=== PATIENT | male | born 1995 | race Caucasian/White ===

== ENCOUNTER 2016-04-29 19:56 | Emergency (ER) | payer MEDICAID ==
--- NOTE | 2016-04-29 20:12 | Emergency Department Record ---
History of Present Illness - General Chief complaint: Pain Stated complaint: KNEE PAIN Time Seen by Provider: 04/29/16 20:07 Source: Patient Mode of Arrival: Ambulatory Limitations: No limitations - History of Present Illness Initial comments: 20 yo male presents to ED with a CC of right knee pain that began last night, worse today. Patient denies injury, fevers, chills, or recent illness. Patient denies previous injury. Patient denies health problems at his baseline. MD Complaint: Extremity pain, Extremity swelling, Joint swelling Onset/Timin -: Hour(s) Location: Right History of Same: No Radiation: None Severity scale (1-10): 8 Quality: Other Consistency: Other Improves with: Other Worsens with: Other Associated Symptoms: Denies other symptoms - Related Data Previous Rx's Medication Instructions Recorded Naproxen [Naprosyn] 500 mg PO Q12H #30 tab. 04/29/16 Allergies Allergy/AdvReac Type Severity Reaction Status Date / Time Penicillins Allergy HIVES Verified 09/17/15 18:37 Travel Screening - Travel/Exposure Within Last 30 Days Have you traveled within the last 30 days?: No - Travel/Exposure Within Last Year Have you traveled outside the [place] in the last year?: No - Additonal Travel Details Have you been exposed to anyone with a communicable illness?: No - Travel Symptoms Symptom Screening: None Review of Systems Constitutional: Denies: Chills, Fever, Malaise, Night sweats Eyes: Denies: Eye discharge, Eye pain ENT: Denies: Congestion, Ear pain Respiratory: Denies: Cough, Dyspnea Cardiovascular: Denies: Chest pain, Dyspnea on exertion Endocrine: Denies: Fatigue, Heat or cold intolerance Gastrointestinal: Denies: Abdominal pain, Nausea, Vomiting Genitourinary: Denies: Incontinence, Retention Musculoskeletal: Reports: Arthralgia, Joint swelling. Denies: Back pain, Gout Skin: Reports: Change in color (redness). Denies: Bruising, Change in hair/ nails Neurological: Denies: Confusion, Headache, Seizure Psychiatric: Denies: Anxiety Hematological/Lymphatic: Denies: Anemia, Blood Clots Past Medical History - SOCIAL HISTORY Smoking Status: Current every day smoker Alcohol Use: Rare Drug Use Detail:: Marijuana - RESPIRATORY Hx Respiratory Disorders: Yes Hx Asthma: Yes - CARDIOVASCULAR Hx Cardio Disorders: No - NEURO Hx Neuro Disorders: No - GI Hx GI Disorders: No - Hx Genitourinary Disorders: Yes Hx Kidney Stones: Yes (hx) - ENDOCRINE Hx Endocrine Disorders: No - MUSCULOSKELETAL Hx Musculoskeletal Disorders: No - PSYCH Hx Psych Problems: No - HEMATOLOGY/ONCOLOGY Hx Hematology/Oncology Disorders: No Family Medical History Any Significant Family History?: No Hx Kidney Disease: Father Physical Exam - General General Appearance: Alert, Oriented x3, Cooperative, Moderate distress Limitations: No limitations - Head Head exam: Atraumatic, Normocephalic, Normal inspection Head exam detail: negative: Abrasion, Contusion, Gonsales's sign, General tenderness, Hematoma, Laceration - Eye Eye exam: Normal appearance. negative: Conjunctival injection, Periorbital swelling, Periorbital tenderness, Scleral icterus - ENT Ear exam: negative: Auricular hematoma, Auricular trauma Nasal Exam: negative: Active bleeding, Discharge, Dried blood, Foreign body Mouth exam: negative: Drooling, Laceration, Muffled voice, Tongue elevation - Neck Neck exam: Normal inspection. negative: Meningismus, Tenderness - Respiratory Respiratory exam: Normal lung sounds bilaterally. negative: Respiratory distress, Rhonchi, Stridor, Wheezes - Cardiovascular Cardiovascular Exam: Regular rate, Normal rhythm, Normal heart sounds Peripheral Pulses: 0: Radial (R), Radial (L), Dorsalis Pedis (R), Dorsalis Pedis (L) - GI/Abdominal GI/Abdominal exam: Soft. negative: Rebound, Rigid, Tenderness - Rectal Rectal exam: Deferred - exam: Deferred - Extremities Extremities exam: Full ROM, Joint swelling, Tenderness, Other (erythema to the skin overlying the right patella, effusion is present. Patellar and quadriceps tendons are intact. Minimla pain with flexion of the knee.). negative: Calf tenderness, Pedal edema - Back Back exam: Denies: CVA tenderness (R), CVA tenderness (L) - Neurological Neurological exam: Alert, Normal gait, Oriented X3 - Psychiatric Psychiatric exam: Normal affect, Normal mood - Skin Skin exam: Erythema Distribution of rash: RLE Description of rash: Erythematous, Macular Course Vital Signs 04/29/16 19:59 Temperature 97.7 F Pulse Rate 75 Respiratory 20 Rate Blood Pressure 041/82 Pulse Ox 97 - Reevaluation(s) Reevaluation #1: 04/29/16 21:06 Labs reviewed, CRP 1.1, ESR 2. Labs are grossly unremarkable for an acute process. No evidence for septic joint on either laboratory review or physical examination. Right Knee: Pre-patellar effusion, no joint effusion. Findings are c/w bursitis. Patient and SO were updated on all results, reports improvement in his pain symptoms. Patient's symptoms appear c/w sow's knee (bursitis). Patient appears stable for discharge at this time on Naprosyn for his symptoms. Medical Decision Making - Lab Data Result diagrams: 04/29/16 20:13 04/29/16 20:13 Disposition Disposition: Discharge Clinical Impression: Bursitis Disposition: Home, Self-Care Condition: (2) Stable Instructions: Knee Bursitis (ED) Additional Instructions: Return to ED if your symptoms worsen or if you have any concerns. Naprosyn as directed. Follow-up with your family doctor in 3-5 days as directed. Prescriptions: Naproxen [Naprosyn] 500 mg PO Q12H #30 tab.dr Forms: Patient Portal Access Time of Disposition: 21:13
[2016-04-29 20:20] LABS: BASO % 0.4 % (0-6); EOS % 2.3 % (0-6); GRAN % 66.4 % (47-80); HEMATOCRIT 43.6 % (42.0-52.0); HEMOGLOBIN 14.9 gm/dl (14.0-18.0); LYMPH % 19.5 % (16-45); MEAN CELL VOLUME 91.2 fl (81-97); MEAN CORPUSCULAR HEMOGLOBIN 31.2 pg (27-33); MEAN CORPUSCULAR HGB CONC 34.2 g/dl (32-36); MEAN PLATELET VOLUME 8.6 fl (7.4-10.4); MONO % 11.4 % (0-9); PLATELET COUNT 279 K/uL (130-400); RED BLOOD COUNT 4.78 M/uL (4.40-5.70); RED CELL DISTRIBUTION WIDTH 12.9 % (11.5-14.5); WHITE BLOOD COUNT W/O DIFF 11.4 K/uL (4.2-12.2)
[2016-04-29 20:30] LABS: ALB/GLOB RATIO 1.6 (1.1-1.8); ALBUMIN 4.4 gm/dL (3.5-5.0); ALKALINE PHOSPHATASE 73 U/L (38-126); ALT/SGPT 23 U/L (21-72); ANION GAP 10.7 (7-16); AST/SGOT 31 U/L (17-59); BLOOD UREA NITROGEN 15 mg/dL (9-20); CARBON DIOXIDE 25.3 mmol/L (22-30); CREATININE 0.9 mg/dL (0.66-1.25); EST GLOMERULAR FILTRATION RATE > 60 ml/min; GLUCOSE,RANDOM 87 mg/dL (70-110); TOTAL PROTEIN 7.2 gm/dL (6.3-8.2)
[2016-04-29 20:41] LABS: C-REACTIVE PROTEIN 1.1 mg/dL (0.0-0.9)
[2016-04-29 20:52] LABS: ERYTHROCYTE SEDIMENTATION RATE 2 mm/hr (0-15)
[2016-04-29] MEDS: NAPROXEN 250 MG TABLET PO ONE (21:18)
--- NOTE | 2016-05-03 15:34 | RADIOLOGY REPORT ---
EXAM: RIGHT KNEE, THREE VIEWS HISTORY: LATERAL KNEE PAIN AND SWELLING. NO KNOWN INJURY. TECHNIQUE: AP, oblique and crosstable lateral views of the right knee were obtained. Comparison: None. FINDINGS: There is normal bone mineralization. No fracture, dislocation, or destructive bone lesion is seen. The articular relations are maintained. No joint effusion. There is prepatellar soft tissue swelling. Prepatellar bursitis cannot be excluded. IMPRESSION: NO ACUTE OSSEOUS ABNORMALITY IDENTIFIED. PREPATELLAR SOFT TISSUE SWELLING, MILD TO MODERATE IN DEGREE. THIS CAN BE SEEN WITH BURSITIS. JOB NUMBER: [id number] [facility]
== END 2016-04-29 21:25 | disposition home or self-care (01) ==
LOC: ER 19:56
DX: M70.51 Other bursitis of knee, right knee (principal)
CPT/HCPCS: 80053; 85025; 85651; 86140; 99283